=== PATIENT | male | born 1980 | race African-American/Black ===

== ENCOUNTER 2022-03-07 17:09 | Emergency (ER) | payer MEDICAID, OTHER ==
[~2022-03-07] VITALS: Ht 182.9 cm; Wt 91.0 kg
[~2022-03-07 17:09] MED LIST: KEPP500; PHEN100C4
[2022-03-07] MEDS ORDERED: PHENYTOIN SODIUM 500 MG in SODIUM CHLORIDE 0.9% 100 ML IV ONE (18:15)
[2022-03-07 19:48] LABS: CHLORIDE 109 mEq/L (98-107)
[2022-03-07 19:59] LABS: ETHANOL BLOOD < 10 mg/dL
[2022-03-07] MEDS ORDERED: ONDANSETRON 4MG ODT PO ONE (20:00)
[2022-03-07 20:32] LABS: *AMPHETAMINES SCREEN URINE PRESUMTIVE POSITIVE (NEGATIVE); *BARBITURATES SCREEN URINE NEGATIVE (NEGATIVE); *BENZODIAZEPINES SCREEN URINE NEGATIVE (NEGATIVE); *COCAINE SCREEN URINE NEGATIVE (NEGATIVE); CANNABINOID URINE SCREEN PRESUMTIVE POSITIVE (NEGATIVE); METHADONE URINE SCREEN NEGATIVE (NEGATIVE); OPIATES URINE SCREEN NEGATIVE (NEGATIVE); PHENCYCLIDINE URINE SCREEN NEGATIVE (NEGATIVE)
[2022-03-07 21:31] LABS: BASOPHILS % 0.2 % (0.0-2.0); EOSINOPHILS % 0.2 % (0.0-5.0); HEMATOCRIT. 44.1 % (42.0-52.0); HEMOGLOBIN. 14.7 g/dL (14.0-18.0); LYMPHOCYTES % 13.2 % (20.0-50.0); MEAN CORPUSCULAR HEMOGLOBIN 31.3 pg (28.0-32.0); MEAN CORPUSCULAR VOLUME 93.8 fL (80.0-94.0); MEAN PLATELET VOLUME 8.8 fl (7.4-10.4); MONOCYTES % 5.1 % (2.0-8.0); NEUTROPHILS % 81.3 % (40.0-76.0); PLATELET 208 x1000/uL (130-400); RED CELL DISTRIBUTION WIDTH 14.4 % (11.6-14.6)
[2022-03-07 22:00] VITALS: BP 97/65
== END 2022-03-07 23:00 | disposition home or self-care (01) ==
LOC: ER 17:09
DX: R56.9 Unspecified convulsions (principal)
CPT/HCPCS: 36415; 80053; 80185; 80305; 80320; 85025; 96365; 96366; 99284; J1165; J7050; Z7610; G0480

== ENCOUNTER 2022-10-23 06:30 | Emergency (ER) | payer MEDICAID ==
[~2022-10-23] VITALS: Ht 177.8 cm; Wt 78.0 kg
[2022-10-23] MEDS ORDERED: PHENYTOIN SODIUM 500 MG in SODIUM CHLORIDE 0.9% 50 ML IV ONE (06:45)
[2022-10-23 07:17] LABS: BASOPHILS % 0.6 % (0.0-2.0); EOSINOPHILS % 3.4 % (0.0-5.0); HEMATOCRIT. 43.9 % (42.0-52.0); HEMOGLOBIN. 14.9 g/dL (14.0-18.0); MEAN CORPUSCULAR HEMOGLOBIN 31.8 pg (28.0-32.0); MEAN CORPUSCULAR VOLUME 93.7 fL (80.0-94.0); MEAN PLATELET VOLUME 9.6 fl (7.4-10.4); MONOCYTES % 11.4 % (2.0-8.0); NEUTROPHILS % 34.6 % (40.0-76.0); PLATELET 268 x1000/uL (130-400); RED BLOOD CELL COUNT 4.69 mill/uL (4.7-6.1); RED CELL DISTRIBUTION WIDTH 14.1 % (11.6-14.6)
[2022-10-23 07:26] LABS: CHLORIDE 106 mEq/L (98-107)
[2022-10-23] MEDS ORDERED: PHENYTOIN SODIUM EXTENDED 100MG CAPSULE PO ONE (08:15)
[2022-10-23 10:20] VITALS: BP 109/69
== END 2022-10-23 10:21 | disposition home or self-care (01) ==
LOC: ER 06:30
DX: G40.509 Epileptic seizures related to external causes, not intractable, without status epilepticus (principal); F12.10 Cannabis abuse, uncomplicated; R79.89 Other specified abnormal findings of blood chemistry
CPT/HCPCS: 36415; 80053; 80185; 85025; 96365; 99284; J1165